=== PATIENT | female | born 1950 | race Caucasian/White ===

== ENCOUNTER → 2022-05-06 | Day surgery (SDC) | payer OTHER ==
[~2022-05-06] VITALS: Ht 163.8 cm; Wt 45.4 kg
[~2022-05-06] MED LIST: ALLERGY RELIEF10 M1 PO; CERTAGEN1 EACH PO; FLONASE ALLER15.8 ML; MELATIN3 MG PO; PROBIOTIC1 EAC1 PO; PROLIA60 MG/1 ML IJ; VITAMIN D3400 UNI1 PO
[2022-05-06 08:00] LABS: HCT 38.5 % (37.0-47.0); HGB 12.7 g/dl (12.5-16.0); MCH 31.7 pg (25.0-31.0); MPV 10.9 fL (6.0-9.5); RBC 4.01 M/uL (4.20-5.40); RDW 12.8 % (11.5-14.0); WBC 4.4 K/uL (4.0-10.5)
[2022-05-06 08:05] LABS: ALBUMIN 3.8 g/dL (3.4-5.0); BILIRUBIN - TOTAL 0.5 mg/dL (0.2-1.0); BUN/CREAT RATIO (CALC) 39.2 RATIO; CREATININE 0.51 mg/dL (0.51-0.95); GLOBULIN (CALCULATION) 3.4 g/dL; POTASSIUM 4.4 mmol/L (3.5-5.1); TOTAL PROTEIN 7.2 g/dL (6.4-8.2)
== END | disposition home or self-care (01) ==
LOC: FAS 07:08
PROVIDERS: Surgery
DX: K29.60 Other gastritis without bleeding (principal); K21.9 Gastro-esophageal reflux disease without esophagitis; R19.4 Change in bowel habit; R63.4 Abnormal weight loss
CPT/HCPCS: 36415; 80053; J2704; J7120

== ENCOUNTER → 2022-06-11 | Day surgery (SDC) | payer OTHER ==
[~2022-06-11] VITALS: Ht 163.8 cm; Wt 45.4 kg
[~2022-06-11] MED LIST changes: +COMBIGAN EYE DRO5 ML OU; +LATANOPROST2.5 ML OU
[2022-06-11 07:52] LABS: HCT 42.1 % (37.0-47.0); HGB 14.1 g/dl (12.5-16.0); MCH 31.8 pg (25.0-31.0); MCHC 33.5 g/dL (32.0-36.0); MPV 10.5 fL (6.0-9.5); RBC 4.43 M/uL (4.20-5.40); RDW 13.2 % (11.5-14.0); WBC 5.2 K/uL (4.0-10.5)
[2022-06-11 08:11] LABS: ALBUMIN 4.1 g/dL (3.4-5.0); BILIRUBIN - TOTAL 0.5 mg/dL (0.2-1.0); BUN/CREAT RATIO (CALC) 27.6 RATIO; CREATININE 0.58 mg/dL (0.51-0.95); GLOBULIN (CALCULATION) 3.7 g/dL; POTASSIUM 4.1 mmol/L (3.5-5.1); TOTAL PROTEIN 7.8 g/dL (6.4-8.2)
== END | disposition home or self-care (01) ==
LOC: FAS 07:13
PROVIDERS: Surgery
DX: R19.4 Change in bowel habit (principal); R63.4 Abnormal weight loss; K63.89 Other specified diseases of intestine
CPT/HCPCS: 36415; 80053; J1610; J2704; J7120